=== PATIENT | female | born 1950 | race Caucasian/White ===

== ENCOUNTER → 2016-12-08 | Outpatient (CLI) | payer OTHER, MEDICARE ==
--- NOTE | 2016-12-08 16:21 | DX ---
DEXA Bone Mineral Densitometry Clinical Indications: Postmenopausal history of spine fractures, screening for osteoporosis Comparison: None Technique: Bone Mineral Densitometry (BMD) by Dual Energy X-Ray Absorptiometry (DEXA) was performed utilizing the Pixlee scanner. The lumbar spine was evaluated in the AP projection. The bilat eral hips and forearm were evaluated in the AP projection. Vertebral fracture assessment was also pe rformed. AP Lumbar Spine: The L2, L3 and L4 vertebral bodies were evaluated. L1 is excluded due to a darya juanita fracture. BMD: 0.910 gm/cm2 T-score: -2.5 SD Z-score: -0.7 SD AP Left Hip: Neck BMD: 0.845 gm/cm2 T-score: -1.4 SD Z-score: 0.2 SD AP Right Hip: Neck BMD: 0.828 gm/cm2 T-score: -1.5 SD Z-score: 0.1 SD AP Left Forearm, 11/09: BMD: 0.793 gm/cm2 T-score: -0.9 SD Z-score: 0.5 SD Vertebral Fracture Assessment: There is a moderate L1 and mild T7 and T11 compression deformity.. No prevertebral aortic calcification, significant marginal bone spurring, facet arthrosis, or intrinsi c vertebral body sclerosis that would effect the accuracy of the lumbar spine BMD measurement. Conclusion: Considering the lowest measured site, the patient is osteoporotic and at increased risk for additional fractures.. The ten year FRAX risk for any major osteoporotic fracture is 15.2% and for a hip fracture is 1.7%. Any bone loss in this patient is probably related to aging or estrogen deficiency. Consider excluding secondary metabolic causes of bone loss (reported to be present in as many as 30% of patients with normal Z scores). Basic laboratory evaluation might include blood chemistries (calci um, phosphorus, alkaline phosphatase, liver function tests, creatinine, total protein), complete bloo d count, serum 25-OH- vitamin D3 level, 24-hour urine calcium, serum TSH and serum PTH. Targeted l aboratory testing based on individual patient circumstances might include serum electrophoresis (SPEP or UPEP), anti-tissue transglutaminase antibody levels (celiac disease) , serum bone specific alkal ine phosphatase, bone turnover markers (urine, serum) or fibroblast growth factor 23 (FGF 23)(evaluat e for unexplained osteomalacia). If secondary causes are excluded, then consider initiating treatment with a bisphosphonate (such as F osamax, Actonel or Boniva). If the patient is unable to use an oral bisphosphonate, another agent suc h as IV bisphosphonates (Boniva or Reclast), teriparatide (Forteo), a selective estrogen receptor mo dulator (Evista) or Denosumab ( anti RANKL monoclonal antibody) might be considered. If antiresorptive therapy is initiated and if clinically indicated, consider obtaining a baseline and 3 month followup bone resorption marker (NTX, CTX, TRAP5b or Pyridinoline, deoxypyridinoline) to mon itor the therapeutic effect. Supplementing an insufficient diet to achieve total intakes of 1500 mg calcium and 800 International Units of vitamin D daily should be considered. Osteoporosis prevention and treatment begins by modify ing risk factors. The patient should be encouraged to participate in a regular exercise program that includes weightbearing and muscle strengthening regimens, as is clinically appropriate. Recommend follow-up DEXA in one year to assess the efficacy of pharmacologic intervention and/or oscar ection of appropriate secondary cause.
== END ==
LOC: FIMAGING 13:10
PROVIDERS: ATTEND Obstetrics & Gynecology Gynecology
DX: Z13.820 Encounter for screening for osteoporosis (principal); M81.0 Age-related osteoporosis without current pathological fracture; Z78.0 Asymptomatic menopausal state; S32.010D Wedge compression fracture of first lumbar vertebra, subsequent encounter for fracture with routine healing

== ENCOUNTER → 2017-09-02 | Outpatient (CLI) | payer OTHER, MEDICARE | LOC: FIMAGING 15:33 | PROVIDERS: ATTEND Obstetrics & Gynecology Gynecology | DX: Z12.31 Encounter for screening mammogram for malignant neoplasm of breast (principal) | CPT/HCPCS: G0202 ==

== ENCOUNTER → 2018-01-27 | Outpatient (CLI) | payer OTHER, MEDICARE | LOC: FIMAGING 11:24 | PROVIDERS: ATTEND Internal Medicine | DX: T84.84XA Pain due to internal orthopedic prosthetic devices, implants and grafts, initial encounter (principal); M17.11 Unilateral primary osteoarthritis, right knee | CPT/HCPCS: 78315; A9503 ==

== ENCOUNTER → 2018-07-28 | Outpatient (CLI) | payer OTHER, MEDICARE | LOC: FIMAGING 11:28 | PROVIDERS: ATTEND Internal Medicine | DX: N64.4 Mastodynia (principal) ==

== ENCOUNTER 2018-11-14 05:43 | Day surgery (SDC) | payer OTHER, MEDICARE ==
[2018-11-14] MEDS ORDERED: LR 1,000 ML IV ONE (05:51)
[2018-11-14] MEDS ORDERED: MIDAZOLAM 2 MG/2 ML VIAL IVP ONE (07:05)
--- NOTE | 2018-11-14 07:05 | PDANEPAE ---
ANE History of Present Illness 68 yo for hysteroscopy ANE Past Medical History - Cardiovascular History Hx Hypertension: Yes Hx Arrhythmias: No Hx Chest Pain: No Hx Coronary Artery / Peripheral Vascular Disease: No Hx CHF / Valvular Disease: No Hx Palpitations: No - Pulmonary History Hx COPD: No Hx Asthma/Reactive Airway Disease: Yes Hx Recent Upper Respiratory Infection: No Hx Oxygen in Use at Home: No Hx Sleep Apnea: No Sleep Apnea Screening Result - Last Documented: Negative Pulmonary History Comment: PAST ASTHMA - Neurologic History Hx Cerebrovascular Accident: No Hx Seizures: No Hx Dementia: No - Endocrine History Hx Diabetes: No - Renal History Hx Renal Disorders: No - Liver History Hx Hepatic Disorders: No - Neurological & Psychiatric Hx Hx Neurological and Psychiatric Disorders: No - Cancer History Hx Cancer: No - Congenital Disorder History Hx Congenital Disorders: No - GI History Hx Gastrointestinal Disorders: No - Chronic Pain History Chronic Pain: Yes (KNEE PAIN) - Surgical History Prior Surgeries: L TKA REVISION ANE Review of Systems Review of Systems: - Exercise capacity METS (RN): 5 METS ANE Patient History - Allergies Allergies/Adverse Reactions: aspirin Allergy (Verified 11/01/18 15:25) Anaphylaxis - Home Medications Home medications: home medication list seen and reviewed Home Medications: Hrt Base 02/20/16 [Last Taken 11/14/18 03:00] Amlodipine Besylate 11/01/18 [Last Taken 11/13/18] Calcium 11/01/18 [Last Taken 11/13/18] - NPO status NPO Status: no food or drink >8 hours NPO Since - Liquids (Date): 11/14/18 NPO Since - Liquids (Time): 03:00 NPO Since - Solids (Date): 11/13/18 NPO Since - Solids (Time): 18:00 - Anes Hx Anes Hx: no prior problems - Smoking Hx Smoking Status: Never smoked - Family Anes Hx Family Hx Anesthesia Complications: UNK ANE Labs/Vital Signs - Vital Signs Blood Pressure: 147/89 Heart Rate: 84 Respiratory Rate: 16 O2 Sat (%): 98 Height: 5 ft 2 in Weight: 63.503 kg ANE Physical Exam - Airway Neck exam: FROM Mallampati Score: Class 2 Mouth exam: normal dental/mouth exam - Pulmonary Pulmonary: no respiratory distress - Cardiovascular Cardiovascular: regular rate and rhythym - ASA Status ASA Status: II ANE Anesthesia Plan Anesthesia Plan: GA w LMA
[2018-11-14] MEDS ORDERED: fentaNYL 100 MCG/2 ML INJ ONE (07:13)
[2018-11-14] MEDS ORDERED: DEXAMETHASONE 4 MG/ML VIAL ONE (07:13)
[2018-11-14] MEDS ORDERED: PROPOFOL/EMULSION 500 MG/50 ML BOTTLE IV ONE (07:13)
[2018-11-14] MEDS ORDERED: ONDANSETRON 4 MG/2 ML VIAL ONE (07:13)
--- NOTE | 2018-11-14 07:21 | PDHPUP ---
History & Physical Update H&P update statement: This history and physical update is based on an assessment of the patient which was completed after admission or registration (within 24 hours), but prior to the surgery/procedure. H&P update: H&P reviewed & patient examined, no change in patient's condition since H&P completed
[2018-11-14] MEDS ORDERED: ONDANSETRON 4 MG/2 ML VIAL IVP PRN (08:26)
[2018-11-14] MEDS ORDERED: fentaNYL 100 MCG/2 ML INJ IVP PRN (08:26)
[2018-11-14] MEDS ORDERED: NALOXONE HCL 0.4 MG/ML INJ IVP PRN (08:26)
[2018-11-14 09:56] VITALS: BP 152/82
--- NOTE | 2018-11-14 10:32 | POSTOPPROG ---
Post Op Note Date of Operation: 11/14/18 Surgeon: Kiki Alvarez Anesthesiologist: Juliano Adorno Anesthesia: LMA Pre-op Diagnosis: PMB , endometrial mass Post-op Diagnosis: endometrial fibroid Indication: as above Procedure: H/S myomectomy Findings: large submucosal fibroid Inf/Abcess present in the surg proc area at time of surgery?: No EBL: Minimal Complications: none
--- NOTE | 2018-11-14 11:54 | GOP ---
DATE OF OPERATION: 11/14/2018 SURGEON: Kiki Alvarez MD NEUROSURGEON: Kiki Alvarez MD. ANESTHESIA: General with LMA. ANESTHESIOLOGIST: Dr. Kit Adorno. PREOPERATIVE DIAGNOSIS: 1. Postmenopausal bleeding. 2. Endometrial mass. POSTOPERATIVE DIAGNOSIS: 1. Postmenopausal bleeding. 2. Endometrial mass. 3. Likely endometrial fibroid. PROCEDURE PERFORMED: Hysteroscopic myomectomy. FINDINGS: A very prominent 2 cm posterior wall fibroid that was somewhat dense tissue and normal tub al ostia. ESTIMATED BLOOD LOSS: Minimal. INDICATIONS: The patient is a 68-year-old, who has been on long-term hormone therapy, noted to have some bleeding in July 2018. Ultrasound showed a 1.8 cm endometrial mass on ultrasound that look ed somewhat like a polyp, possible fibroid. Desires removal and a diagnosis of the mass. DESCRIPTION OF PROCEDURE: With informed consent signed, the patient was taken to the operating room and placed under general anesthesia, placed in the low dorsal lithotomy position and prepped and drap ed in the usual sterile fashion. Speculum was placed in the vagina. Tenaculum was placed on the ant erior lip of the cervix. The cervix dilated to 7 mm. Hysteroscope was placed using normal saline as a filling medium and morcellation of the fibroid was done. This was a very extensive process. It t ook at least 25 minutes to remove this fibroid, as it was very dense. Once it was felt to be complet hank removed, hemostasis was noted. Net fluid deficit was about 400 cc. The patient was awakened in the operating room and taken to the recovery room in stable condition, tolerating the procedure well. COMPLICATIONS: None. /[id number]/MODL
== END 2018-11-14 10:02 | disposition home or self-care (01) ==
LOC: FSGY 05:43
PROVIDERS: ATTEND Obstetrics & Gynecology Gynecology
PROC: 0UB98ZZ Excision of Uterus, Via Natural or Artificial Opening Endoscopic (ICD-10-PCS; principal; 2018-11-14 07:26)
DX: D25.0 Submucous leiomyoma of uterus (principal); N95.0 Postmenopausal bleeding; I10 Essential (primary) hypertension; Z96.652 Presence of left artificial knee joint
CPT/HCPCS: 58561; C1782; J1100; J2250; J2405; J2704; J3010